=== PATIENT | male | born 1965 | race Caucasian/White ===

== ENCOUNTER 2021-07-27 08:28 | Emergency (ER) | payer MEDICARE ==
[~2021-07-27 08:28] MED LIST: ASPIRIN EC81 MG PO; ATARAX25 MG PO; ATORVASTATIN CA40 MG PO; ATROVENT HFA12.9 GM INH; AZITHROMYCIN250 MG PO; BREO ELLIPTA 11 EACH INH; DESYREL50 MG PO; INCRUSE ELLI62.5 MCG INH; IPRAT-ALBUT 0.5-3 ML INH; ISOSORBIDE MONO60 M1 PO; K-DUR20 MEQ PO; LASIX20 MG PO; LASIX40 MG PO; LEVAQUIN750 MG PO; MEDROL 4MG DOSEP4 MG PO; METOPROLOL SUCC25 MG PO; MICRO-K10 MEQ PO; MUCINEX 600MG600 MG PO; NEBULIZER UNIT NEB; OMEPRAZOLE40 MG PO; POTASSIUM CHLO10 ME1 PO; PREDNISONE 10MG10 MG PO; PREDNISONE 20MG20 MG PO; PREDNISONE10 MG PO; PROZAC20 M1 PO; PROZAC20 MG PO; SPIRIVA RESPIMAT4 G1 INH; ZPAK PO
[2021-07-27 09:28] LABS: BASOPHIL 0.7 % (0-2); HCT 50.6 % (42.0-52.0); HGB 16.2 g/dl (13.2-18.0); LYMPHOCYTE 15.9 % (15-48); MCV 96.7 fL (78.0-100.0); MONOCYTE 10.3 % (0-12); MPV 8.8 fL (6.0-9.5); NEUTROPHIL 71.5 % (41-80); NRBC 0; PLT 265 K/uL (150-400); RBC 5.23 M/uL (4.70-6.00); RDW 12.7 % (11.5-14.0); WBC 8.6 K/uL (4.0-10.5)
[2021-07-27 10:00] LABS: ALBUMIN 3.9 g/dL (3.4-5.0); BILIRUBIN - TOTAL 0.4 mg/dL (0.2-1.0); BUN/CREAT RATIO (CALC) 12.8 RATIO; CREATININE 0.86 mg/dL (0.67-1.17); GLOBULIN (CALCULATION) 3.9 g/dL; POTASSIUM 4.1 mmol/L (3.5-5.1); TOTAL PROTEIN 7.8 g/dL (6.4-8.2)
[2021-07-27 10:05] LABS: LACTIC ACID 0.9 mmol/L (0.4-1.9)
[2021-07-27] MEDS ORDERED: PREDNISONE 20MG20 MG PO (12:02)
[2021-07-27] MEDS ORDERED: ATROVENT HFA12.9 GM INH (12:02)
== END 2021-07-27 12:10 | disposition home or self-care (01) ==
LOC: FER 08:28
PROVIDERS: Emergency Medicine
DX: J44.1 Chronic obstructive pulmonary disease with (acute) exacerbation (principal); I25.10 Atherosclerotic heart disease of native coronary artery without angina pectoris; I50.9 Heart failure, unspecified; F17.210 Nicotine dependence, cigarettes, uncomplicated; Z20.822 Contact with and (suspected) exposure to COVID-19
CPT/HCPCS: 36415; 36600; 71045; 80053; 82803; 83605; 83880; 85025; 87040; 93005; 94640; J2930; U0002

== ENCOUNTER → 2021-09-21 | Day surgery (SDC) | payer MEDICARE ==
[~2021-09-21] VITALS: Ht 170.2 cm; Wt 104.4 kg
[~2021-09-21] MED LIST changes: +INHALER IN; +O2; +[UNRECOGNIZED DRUG - REMARK] INH
== END | disposition home or self-care (01) ==
LOC: FAS 09:28
DX: M62.08 Separation of muscle (nontraumatic), other site (principal); R14.0 Abdominal distension (gaseous); R14.2 Eructation; D12.8 Benign neoplasm of rectum; D12.5 Benign neoplasm of sigmoid colon; D12.3 Benign neoplasm of transverse colon; D12.9 Benign neoplasm of anus and anal canal; K31.9 Disease of stomach and duodenum, unspecified; K44.9 Diaphragmatic hernia without obstruction or gangrene; J44.9 Chronic obstructive pulmonary disease, unspecified; F17.210 Nicotine dependence, cigarettes, uncomplicated; K21.9 Gastro-esophageal reflux disease without esophagitis; J45.909 Unspecified asthma, uncomplicated; I25.10 Atherosclerotic heart disease of native coronary artery without angina pectoris; E78.00 Pure hypercholesterolemia, unspecified; I11.0 Hypertensive heart disease with heart failure; I50.9 Heart failure, unspecified; I73.9 Peripheral vascular disease, unspecified; Z72.89 Other problems related to lifestyle; Z98.61 Coronary angioplasty status; Z79.82 Long term (current) use of aspirin
CPT/HCPCS: 36415; 84132; J1610; J2250; J2704; J7120